=== PATIENT | male | born 1950 | race Caucasian/White ===

== ENCOUNTER 2017-03-20 05:34 | Day surgery (SDC) | payer MEDICARE, OTHER ==
[~2017-03-20] VITALS: Ht 172.7 cm; Wt 63.1 kg
--- NOTE | 2017-04-15 07:06 | OR ---
ADMIT: 03/20/2017 RM/LOC: [facility] MR#: [id number] [address] [id number] [address] [place] [address] Operative/Delivery Room Report SEX: M AGE: 66 : 1950 SURGERY DATE: 03/20/2017 SURGEON: Segun Marrufo MD PREOPERATIVE DIAGNOSIS: Soft tissue sarcoma, right lateral thigh. POSTOPERATIVE DIAGNOSIS: Soft tissue sarcoma, right lateral thigh. PROCEDURE PERFORMED: Wide local excision of right lower extremity soft tissue sarcoma on his right lateral thigh. This is 28 cm long x 12 cm wide ellipse including skin, tumor, fascia, and muscle. INFANTRY UNIT LEADER: KENTON Phillips ANESTHESIA: General endotracheal with addition of local into the wound postprocedure. ESTIMATED BLOOD LOSS: Approximately 20 mL. DESCRIPTION OF PROCEDURE: After appropriate informed consent was obtained, the patient was brought to the operating room. General endotracheal anesthesia was induced. The patient was positioned with his right side up, held in place with supports and all of extremities appropriately padded. His right lateral thigh was prepped and draped in a sterile fashion. A large ellipse incision was marked out. It had at least 2 cm wide around the gross tumor, so that was a 12 cm wide width and I made it 28 cm long. Incision was created with a 10 blade, this was carried deep down through the fascia and the iliotibial band out laterally. So, I dissected the plane beneath the fascia and then also included some of the lateral musculature on his lateral thigh along with the specimen. I felt like I was getting well around the tumor, getting again underneath the fascia layer and even including some of the muscle along with this. This paddle of tumor, skin, fascia, muscle was all removed en bloc. It was oriented with a single stitch proximally, double stitch anteriorly and handed off sent to pathology. The skin edges were then undermined. The wound was then copiously irrigated out with warm saline. Any bleeding controlled with cautery. A 15-Congolese, round Júnior drain was placed through a separate ADMIT: 03/20/2017 RM/LOC: [facility] MR#: [id number] [address] [address] BRIEN BAL L [address] [place] [address] Operative/Delivery Room Report SEX: M AGE: 66 : 1950 stab incision and placed along the undersurface of the skin in the wound. The wound was then closed with multiple interrupted 2-0 Vicryl sutures in the dermal layer and then a running 4-0 Monocryl suture in subcuticular layer. The drain was sewn in place and placed to bulb suction. Sterile dressings were applied. The patient tolerated the procedure well and was taken to the recovery room in stable condition. Flo Ballesteros assisted in this entire procedure. His help was necessary for retraction. Segun Marrufo MD/ dona JOB #: [id number] CC: Segun Marrufo, Attending Physician Americo Hernandez, Family Physician KENTON Maynard [address] [place] [id number]
[2017-04-27] MEDS ORDERED: PRESERVISION A1 EACH PO (16:15)
[2017-04-27] MEDS ORDERED: CENTRUM CHEWAB1 EACH PO (16:15)
[2017-04-27] MEDS ORDERED: NORCO 5-325 TA1 EACH PO (16:15)
== END 2017-03-20 12:45 | disposition home or self-care (01) ==
LOC: SSS 05:34
PROC: 0JBL0ZZ Excision of Right Upper Leg Subcutaneous Tissue and Fascia, Open Approach (ICD-10-PCS; principal; 2017-03-20)
DX: C49.21 Malignant neoplasm of connective and soft tissue of right lower limb, including hip (principal)